=== PATIENT | female | born 1945 | race Caucasian/White ===

== ENCOUNTER → 2017-07-22 | Outpatient (CLI) | payer MEDICARE, BC ==
[2017-07-22 17:31] LABS: CH 30.4; CHCM 33.7; HCT 40.8 % (34.0-46.0); HDW 2.26; HGB 13.7 gm/dL (11.4-16.0); MCH 30.3 pg (25.0-35.0); MCHC 33.6 g/dL (31.0-37.0); MCV 90.4 fL (80.0-100.0); Mean Platelet Volume 7.6; RBC 4.51 m/uL (3.80-5.40); RDW 13.9 % (11.5-15.5); WBC 6.9 k/uL (3.8-10.6)
[2017-07-22 17:42] LABS: ALT 40 U/L (9-52); AST 33 U/L (14-36); Alkaline Phosphatase 93 U/L (38-126); Anion Gap 10 mmol/L; Blood Urea Nitrogen 16 mg/dL (7-17); Calcium 9.7 mg/dL (8.4-10.2); Carbon Dioxide 26 mmol/L (22-30); Chloride 104 mmol/L (98-107); Cholesterol 221 mg/dL (<200); Glucose 80 mg/dL (74-99); HDL Cholesterol 71 mg/dL (40-60); Non-African American GFR(MDRD) >60 (>60 ml/min/1.73 sqM); Potassium 4.4 mmol/L (3.5-5.1); Sodium 140 mmol/L (137-145); Total Bilirubin 1.1 mg/dL (0.2-1.3)
[2017-07-22 18:39] LABS: Hemoglobin A1C 5.8 % (4.2-6.1)
[2017-07-24 18:37] LABS: ANA w/Reflex to Titer NEGATIVE (NEGATIVE)
== END | disposition home or self-care (01) ==
LOC: LABWHC1 16:12
PROVIDERS: ATTEND Family Medicine
DX: M12.88 Other specific arthropathies, not elsewhere classified, other specified site (principal); I10 Essential (primary) hypertension; R73.01 Impaired fasting glucose; G40.209 Localization-related (focal) (partial) symptomatic epilepsy and epileptic syndromes with complex partial seizures, not intractable, without status epilepticus
CPT/HCPCS: 36415; 80053; 80061; 80177; 83036; 84443; 85027; 86038; 86376; 86800

== ENCOUNTER → 2017-07-25 | Outpatient (CLI) | payer MEDICARE, BC ==
--- NOTE | 2017-07-25 17:13 | US ---
EXAMINATION TYPE: US kidneys/renal and bladder DATE OF EXAM: 07/25/2017 COMPARISON: 08/09/2016 CLINICAL HISTORY: N28.9 Disorder of kidney and ureter. History of kidney cysts EXAM MEASUREMENTS: Right Kidney: 9.7 x 3.9 x 4.9 cm Left Kidney: 10.0 x 4.8 x 4.6 cm Right Kidney: 2.5 x 2.1 x 2.4cm exophytic complex cystic area inferior pole, 0.5cm echogenic focus mi d pole, dilated renal pelvis Left Kidney: 0.9cm exophytic cystic area inferior pole, dilated renal pelvis Bladder: wnl Bilateral Jets seen: yes CONCLUSION: I see no evidence of renal obstruction. 1 cm cortical cyst on the lower pole left kidney Complex 2.5 cm cyst on the lower pole right kidney. There is clearing of the ectasia of the left fadia l pelvis compared to old exam. Cortical cysts appear not significantly different.
== END | disposition home or self-care (01) ==
LOC: RADUSMAIN 16:06
PROVIDERS: ATTEND Family Medicine
DX: N28.1 Cyst of kidney, acquired (principal)
CPT/HCPCS: 76770

== ENCOUNTER → 2017-09-17 | Outpatient (CLI) | payer MEDICARE, BC ==
--- NOTE | 2017-09-18 07:42 | MM ---
Reason for exam: additional evaluation requested from abnormal screening. Last mammogram was performed less than 1 month ago. History: Patient is postmenopausal. Benign excisional biopsy of the right breast, 1993. Physical Findings: Nurse did not find any significant physical abnormalities on exam. MG 3D Work Up W/Cad LT CC with magnification, LM with magnification, and LM view(s) were taken of the left breast. Prior study comparison: September 06, 2017, bilateral MG 3d screening mammo w/cad. June 28, 2016, bilateral MG 3d screening mammo w/cad. There are scattered fibroglandular densities. New punctate group of calcifications located superficially in the lower inner quadrant. These punctate calcifications can be followed, reassess in 6 months. These results were verbally communicated with the patient and result sheet given to the patient on 09/17/17. ASSESSMENT: Probably benign, BI-RAD 3 RECOMMENDATION: Follow-up diagnostic mammogram of the left breast in 6 months.
== END | disposition home or self-care (01) ==
LOC: RADMAMWWP 10:25
PROVIDERS: ATTEND Family Medicine
DX: R92.8 Other abnormal and inconclusive findings on diagnostic imaging of breast (principal)
CPT/HCPCS: G0206; G0279

== ENCOUNTER → 2018-03-24 | Outpatient (CLI) | payer MEDICARE, BC ==
--- NOTE | 2018-03-24 11:58 | MM ---
Reason for exam: follow-up at short interval from prior study. Last mammogram was performed 6 months ago. History: Patient is postmenopausal. Benign excisional biopsy of the right breast, 1993. Physical Findings: Nurse did not find any significant physical abnormalities on exam. MG 3D Diag Mammo W/Cad LT CC and MLO view(s) were taken of the left breast. Prior study comparison: September 17, 2017, left breast MG 3d work up w/cad LT. September 06, 2017, bilateral MG 3d screening mammo w/cad. Finding: There are typically benign calcifications in the lower inner quadrant of the left breast. No significant changes in finding since September 17, 2017 and September 06, 2017. These results were verbally communicated with the patient and result sheet given to the patient on 03/27/18. ASSESSMENT: Probably benign, BI-RAD 3 RECOMMENDATION: Follow-up diagnostic mammogram of both breasts in 6 months. Back on schedule for August 2018.
== END | disposition home or self-care (01) ==
LOC: RADMAMWWP 11:19
PROVIDERS: ATTEND Family Medicine
DX: R92.8 Other abnormal and inconclusive findings on diagnostic imaging of breast (principal)
CPT/HCPCS: 77061; 77065

== ENCOUNTER → 2018-10-06 | Outpatient (CLI) | payer MEDICARE, BC ==
--- NOTE | 2018-10-06 14:45 | MM ---
Reason for exam: follow-up at short interval from prior study. Last mammogram was performed 6 months ago. History: Patient is postmenopausal. Benign excisional biopsy of the right breast, 1993. Physical Findings: Nurse did not find any significant physical abnormalities on exam. MG 3D Diag Mammo W/Cad RICHIE Bilateral CC and MLO view(s) were taken. Prior study comparison: March 24, 2018, left breast MG 3d diag mammo w/cad LT. September 17, 2017, left breast MG 3d work up w/cad LT. There are scattered fibroglandular densities. There is a 1.5mm group of calcifications in the lower inner quadrant unchaged from 2016. No suspicious abnormality. No significant new findings when compared with previous films. These results were verbally communicated with the patient and result sheet given to the patient on 10/06/18. ASSESSMENT: Benign, BI-RAD 2 RECOMMENDATION: Routine screening mammogram of both breasts in 1 year.
== END | disposition home or self-care (01) ==
LOC: RADMAMWWP 13:26
PROVIDERS: ATTEND Family Medicine
DX: R92.8 Other abnormal and inconclusive findings on diagnostic imaging of breast (principal)
CPT/HCPCS: 77066; G0279; 77062

== ENCOUNTER → 2019-03-09 | Outpatient (CLI) | payer MEDICARE, BC ==
--- NOTE | 2019-03-09 16:07 | XR ---
EXAMINATION TYPE: XR foot complete RT DATE OF EXAM: 03/09/2019 COMPARISON: NONE HISTORY: 74 year-old female right foot pain and redness at fourth metatarsal area after injury. TECHNIQUE: Review FINDINGS: Moderate degenerative joint space narrowing and marginal spurring at the first MTP joint. Additional degenerative change of the first metatarsal sesamoid joint. Os peroneum is noted. A type I versus typ e II assess for navicular is present. No acute fracture, subluxation, or dislocation is seen. IMPRESSION: Some degenerative changes at the great toe. No acute osseous abnormality seen.
== END | disposition home or self-care (01) ==
LOC: RADXRMAIN 15:32
PROVIDERS: ATTEND Family Medicine
DX: M19.071 Primary osteoarthritis, right ankle and foot (principal)

== ENCOUNTER 2019-08-12 17:53 | Inpatient (IN) | payer MEDICARE, BC ==
[2019-08-12 18:05] VITALS: RESP 18
--- NOTE | 2019-08-12 19:04 | ED ---
Chest Pain HPI - General Chief Complaint: Chest Pain Stated Complaint: Abnormal EKG Time Seen by Provider: 08/12/19 18:38 Source: patient Mode of arrival: ambulatory Limitations: no limitations - History of Present Illness Initial Comments: Patient is a 74-year-old female presenting to the emergency department with a chief complaint of chest pain. Patient was sent to the ED by her primary care. Patient reports she has developed a short burst of chest pain lasting approximately 10 seconds for the past 2 days. Patient reports the pain is located "deep into her chest". Patient reports that the pain is more of an ache. Patient denies any diaphoresis, blurry vision or lightheadedness during these episodes. Patient denies any radiation of the pain. Patient does have an extensive family history of cardiovascular disease. Patient does have hypertension and hypercholesterolemia. - Related Data Home Medications Medication Instructions Recorded Confirmed Candesartan Cilexetil [Atacand] 32 mg PO HS 08/12/19 08/12/19 Collagen Powder 1 dose PO DAILY 08/12/19 08/12/19 Magnesium/Calcium Powder 1 dose PO DAILY 08/12/19 08/12/19 Metoprolol Succinate [Toprol XL] 25 mg PO BID 08/12/19 08/12/19 Multivitamins, Thera [Multivitamin 1 tab PO DAILY 08/12/19 08/12/19 (formulary)] Potassium Otc(Unknown) 1.5 tab PO DAILY 08/12/19 08/12/19 Vit C/E/Zn/Coppr/Lutein/Zeaxan 1 cap PO BID 08/12/19 08/12/19 [Preservision Areds 2 Softgel] amLODIPine [Norvasc] 5 mg PO DAILY 08/12/19 08/12/19 levETIRAcetam [Keppra] 125 mg PO HS 08/12/19 08/12/19 Allergies Allergy/AdvReac Type Severity Reaction Status Date / Time amoxicillin [From Augmentin] Allergy Rash/Hives Verified 08/12/19 18:09 banana Allergy Unknown Verified 08/12/19 19:26 cheese Allergy Unknown Verified 08/12/19 19:26 clavulanic acid Allergy Rash/Hives Verified 08/12/19 18:09 [From Augmentin] corn Allergy Unknown Verified 08/12/19 19:26 egg Allergy Unknown Verified 08/12/19 19:26 methylprednisolone Allergy Rash/Hives Verified 08/12/19 18:09 [From Medrol] Milk Containing Products Allergy Unknown Verified 08/12/19 19:26 Mushroom Allergy Unknown Verified 08/12/19 19:26 naproxen [From Anaprox] Allergy Unknown Verified 08/12/19 18:09 oyster extract Allergy Unknown Verified 08/12/19 19:26 phenylbutazone Allergy Unknown Verified 08/12/19 18:09 [From Butazolidin] Sulfa (Sulfonamide Allergy Rash/Hives Verified 08/12/19 18:09 Antibiotics) Tetracyclines Allergy Rash/Hives Verified 08/12/19 18:09 wheat Allergy Unknown Verified 08/12/19 19:26 Yeast Allergy Unknown Verified 08/12/19 19:26 ciprofloxacin [From Cipro] AdvReac FOOT PAIN Verified 08/12/19 19:26 clarithromycin [From Biaxin] AdvReac Nausea & Verified 08/12/19 19:26 Vomiting & Diarrhea dexamethasone AdvReac [id number]: Verified 08/12/19 19:26 PAIN IN EYE metaxalone [From Skelaxin] AdvReac SHAKY Verified 08/12/19 19:26 neomycin AdvReac [id number]: Verified 08/12/19 19:26 PAIN IN EYE polymyxin B AdvReac [id number]: Verified 08/12/19 19:26 PAIN IN EYE GREEN MAE Allergy Unknown Uncoded 08/12/19 19:26 RYE Allergy Unknown Uncoded 08/12/19 19:26 Review of Systems ROS Statement: Those systems with pertinent positive or pertinent negative responses have been documented in the HPI. ROS Other: All systems not noted in ROS Statement are negative. EKG Findings - EKG Comments: EKG Findings:: Normal sinus rhythm, no ST elevation. Left axis deviation. Ventricular rate 80, OH interval 150, QRS duration 78, QT/QTC 356/410 Past Medical History Past Medical History: Hypertension History of Any Multi-Drug Resistant Organisms: None Reported Past Surgical History: Appendectomy, Cholecystectomy, Tubal Ligation Additional Past Surgical History / Comment(s): breast sx Past Psychological History: No Psychological Hx Reported Smoking Status: Never smoker Past Alcohol Use History: None Reported Past Drug Use History: None Reported General Exam Limitations: no limitations General appearance: alert, in no apparent distress Head exam: Present: atraumatic, normocephalic, normal inspection Eye exam: Present: normal appearance, PERRL, EOMI Pupils: Present: normal accommodation ENT exam: Present: normal exam, mucous membranes moist, normal external ear exam Neck exam: Present: normal inspection, full ROM Respiratory exam: Present: normal lung sounds bilaterally Cardiovascular Exam: Present: regular rate, normal rhythm, systolic murmur Extremities exam: Present: normal inspection, full ROM Back exam: Present: normal inspection, full ROM Neurological exam: Present: alert, oriented X3 Psychiatric exam: Present: normal affect, normal mood Skin exam: Present: warm, intact, normal color Course Vital Signs 08/12/19 17:56 Temperature 98.5 F Pulse Rate 105 H Respiratory 18 Rate Blood Pressure 177/97 O2 Sat by Pulse 98 Oximetry Chest Pain MDM - Differential Diagnosis ACS - MDM Patient is a 74-year-old female presenting to emergency Department with a chief complaint of chest pain. Patient was sent to the ED by her primary care. Patient has developed a short burst of substernal chest pain for the past 2 days. Patient is not any chest pain at this time. Patient does not have any diaphoresis, lightheadedness or any blurry vision. Chest pain did not radiate anywhere. Patient had no shortness of breath. Patient denies chest pain on exertion. Initial chest x-ray is unremarkable. EKG shows left axis deviation. Initial troponins are negative. Physical examination is unremarkable. Patient has a heart score of 6 and will be admitted for observation and serial troponins. Case discussed with . Admitting physician is Cardiology consulted Disposition Clinical Impression: Chest pain Disposition: ADMITTED IP TO THIS HOSP Condition: Stable Instructions (If sedation given, give patient instructions): Chest Pain (ED) Additional Instructions: Patient will be admitted Is patient prescribed a controlled substance at d/c from ED?: No Referrals: Karina Le DO [Primary Care Provider] - 1-2 days Time of Disposition: 20:09
--- NOTE | 2019-08-12 19:34 | XR ---
EXAMINATION TYPE: XR chest 2V DATE OF EXAM: 08/12/2019 COMPARISON: 03/24/2013 HISTORY: Chest pain TECHNIQUE: Frontal and lateral views of the chest are obtained. FINDINGS: Heart is normal. Lungs are clear of infiltrate. There are no hilar masses. There is no ple ural effusion. Bony thorax is intact. IMPRESSION: No active cardiopulmonary disease. Normal heart. No change.
[2019-08-12 19:37] LABS: Basophils # (A) 0.1 k/uL (0-0.2); Basophils % (A) 1 %; Eosinophils # (A) 0.1 k/uL (0-0.7); Eosinophils % (A) 2 %; HGB 13.4 gm/dL (11.4-16.0); Lymphocytes # (A) 1.7 k/uL (1.0-4.8); Lymphocytes % (A) 21 %; MCV 90.8 fL (80.0-100.0); Mean Platelet Volume 6.8; Monocytes # (A) 0.4 k/uL (0-1.0); Monocytes % (A) 5 %; Neutrophils # (A) 5.9 k/uL (1.3-7.7); Neutrophils % (A) 70 %; Platelet Count 282 k/uL (150-450); RBC 4.62 m/uL (3.80-5.40); RDW 13.6 % (11.5-15.5); WBC 8.4 k/uL (3.8-10.6)
[2019-08-12 19:39] LABS: ALT 23 U/L (9-52); AST 32 U/L (14-36); African American GFR (CKD) >90 (>60 ml/min/1.73 sqM); Albumin 4.5 g/dL (3.5-5.0); Alkaline Phosphatase 115 U/L (38-126); Anion Gap 10 mmol/L; Blood Urea Nitrogen 18 mg/dL (7-17); Calcium 9.9 mg/dL (8.4-10.2); Carbon Dioxide 25 mmol/L (22-30); Chloride 105 mmol/L (98-107); Glucose 103 mg/dL (74-99); Magnesium 2.2 mg/dL (1.6-2.3); Sodium 140 mmol/L (137-145); Total Bilirubin 0.6 mg/dL (0.2-1.3); Total Protein 7.6 g/dL (6.3-8.2)
[2019-08-12 19:52] LABS: INR 0.9 (<1.2); Partial Thromboplastin Time 23.2 sec (22.0-30.0); Prothrombin Time 9.8 sec (9.0-12.0)
[2019-08-12] MEDS ORDERED: MORPHINE SULFATE 4 MG/ML SYRINGE IV PRN (20:10)
[2019-08-12] MEDS ORDERED: NALOXONE 0.4 MG/ML 1 ML VIAL IV PRN (20:10)
[2019-08-12] MEDS ORDERED: LOSARTAN 50 MG TAB PO SCH (21:30)
[2019-08-12] MEDS ORDERED: levETIRAcetam 250 MG TAB PO SCH (21:30)
[2019-08-12] MEDS: METOPROLOL SUCCINATE (ER) 25 MG TAB.ER.24H PO SCH (22:13)
[2019-08-13] MEDS ORDERED: amLODIPine 5 MG TAB PO SCH (09:00)
--- NOTE | 2019-08-13 11:05 | P.CRDCN ---
History of Present Illness History of present illness: This is a pleasant 74-year-old female past medical history significant for hypertension. She denies prior history of coronary artery disease, dyslipidemia or diabetes mellitus. She does not follow with a button cutter. We have been asked to see her in consultation secondary to chest discomfort. She states over the previous 2-3 days she has noticed a jolt like sharp pain in the left precordial region typically at rest when she lays down. There is no radiation or associated symptoms. She states she has had palpitations in the past and this was different. There was no palpitations this time only the pain. She recently traveled by car to the [facility] and after that trip her right leg was swollen. Currently there is no swelling in either leg. She denies chest discomfort currently. She does state she is under significant amount of stress as her is having a heart catheterization next week. EKG reveals sinus mechanism heart rate of 80, left axis deviation and nonspecific ST changes. Chest x-ray is negative for an acute cardiopulmonary process. Laboratory data reviewed, CBC unremarkable, d-dimer 0.34, sodium 140, potassium 4.0, creatinine 0.66, magnesium 2.2, cardiac enzymes negative 3. Current daily cardiac medications include Toprol 25 mg twice a day, amlodipine 5 mg daily. At the time of my exam: CONSTITUTIONAL: Denies fever. Denies chills. EYES: Denies blurred vision. Denies vision changes. Denies eye pain. EARS, NOSE, MOUTH & THROAT: Denies headache. Denies sore throat. Denies ear pain. CARDIOVASCULAR: Denies chest pain. Denies shortness of breath. Denies orthopnea. Denies PND. Denies palpitations. RESPIRATORY: Denies cough. GASTROINTESTINAL: Denies abdominal pain. Denies diarrhea. Denies constipation. Denies nausea. Denies vomiting. MUSCULOSKELETAL: Denies myalgias. INTEGUMENTARY: Denies pruitis. Denies rash. NEUROLOGIC: Denies numbness. Denies tingling. Denies weakness. PSYCHIATRIC: Denies anxiety. Denies depression. ENDOCRINE: Denies fatigue. Denies weight change. Denies polydipsia. Denies polyurina. GENITOURINARY: Denies burning, hematuria or urgency with micturation. HEMATOLOGIC: Denies history of anemia. Denies bleeding. Blood pressure 145/78 heart rate 61 afebrile maintaining oxygen saturation on room air GENERAL: This is a 74-year-old female in no apparent distress at the time of my examination. HEENT: Head is atraumatic, normocephalic. Pupils are equal, round. Sclerae anicteric. Conjunctivae are clear. Mucous membranes of the mouth are moist. Neck is supple. There is no jugular venous distention. No carotid bruit is heard. LUNGS: Clear to auscultation no wheezes, rales or rhonchi. No chest wall tenderness is noted on palpation or with deep breathing. HEART: Regular rate and rhythm without murmurs, rubs or gallops. S1 and S2 heard. ABDOMEN: Soft, nontender. Bowel sounds are heard. No organomegaly noted. EXTREMITIES: No evidence of peripheral edema and no calf tenderness noted. VASCULAR: Radial and dorsalis pedis pulses palpated, no evidence of clubbing. NEUROLOGIC: Patient is awake, alert and oriented x3. ASSESSMENT Chest pain, atypical. An acute coronary event has been ruled out. Hypertension PLAN An acute coronary event has been ruled out. Obtain 2D echocardiogram and doppler study to assess cardiac structure and function. Perform stress echocardiogram to assess for stress induced ischemia. If stress test is normal, she may be discharged home from a cardiac perspective. Thank you kindly for this consultation. Nurse Practitioner note has been reviewed, I agree with a documented findings and plan of care. Patient was seen and examined. Past Medical History Past Medical History: Hypertension History of Any Multi-Drug Resistant Organisms: None Reported Past Surgical History: Adenoidectomy, Appendectomy, Cholecystectomy, Tonsillectomy, Tubal Ligation Additional Past Surgical History / Comment(s): breast sx Past Anesthesia/Blood Transfusion Reactions: No Reported Reaction Past Psychological History: No Psychological Hx Reported Smoking Status: Never smoker Past Alcohol Use History: None Reported Past Drug Use History: None Reported - Past Family History Mother Family Medical History: Coronary Artery Disease (CAD), Hypertension Father Family Medical History: Coronary Artery Disease (CAD), Hypertension Medications and Allergies Home Medications Medication Instructions Recorded Confirmed Type Candesartan Cilexetil [Atacand] 32 mg PO HS 08/12/19 08/12/19 History Collagen Powder 1 dose PO DAILY 08/12/19 08/12/19 History Magnesium/Calcium Powder 1 dose PO DAILY 08/12/19 08/12/19 History Metoprolol Succinate [Toprol XL] 25 mg PO BID 08/12/19 08/12/19 History Multivitamins, Thera [Multivitamin 1 tab PO DAILY 08/12/19 08/12/19 History (formulary)] Potassium Otc(Unknown) 1.5 tab PO DAILY 08/12/19 08/12/19 History Vit C/E/Zn/Coppr/Lutein/Zeaxan 1 cap PO BID 08/12/19 08/12/19 History [Preservision Areds 2 Softgel] amLODIPine [Norvasc] 5 mg PO DAILY 08/12/19 08/12/19 History levETIRAcetam [Keppra] 125 mg PO HS 08/12/19 08/12/19 History Allergies Allergy/AdvReac Type Severity Reaction Status Date / Time amoxicillin [From Augmentin] Allergy Rash/Hives Verified 08/12/19 18:09 banana Allergy Unknown Verified 08/12/19 19:26 cheese Allergy Unknown Verified 08/12/19 19:26 clavulanic acid Allergy Rash/Hives Verified 08/12/19 18:09 [From Augmentin] corn Allergy Unknown Verified 08/12/19 19:26 egg Allergy Unknown Verified 08/12/19 19:26 methylprednisolone Allergy Rash/Hives Verified 08/12/19 18:09 [From Medrol] Milk Containing Products Allergy Unknown Verified 08/12/19 19:26 Mushroom Allergy Unknown Verified 08/12/19 19:26 naproxen [From Anaprox] Allergy Unknown Verified 08/12/19 18:09 oyster extract Allergy Unknown Verified 08/12/19 19:26 phenylbutazone Allergy Unknown Verified 08/12/19 18:09 [From Butazolidin] Sulfa (Sulfonamide Allergy Rash/Hives Verified 08/12/19 18:09 Antibiotics) Tetracyclines Allergy Rash/Hives Verified 08/12/19 18:09 wheat Allergy Unknown Verified 08/12/19 19:26 Yeast Allergy Unknown Verified 08/12/19 19:26 ciprofloxacin [From Cipro] AdvReac FOOT PAIN Verified 08/12/19 19:26 clarithromycin [From Biaxin] AdvReac Nausea & Verified 08/12/19 19:26 Vomiting & Diarrhea dexamethasone AdvReac [id number]: Verified 08/12/19 19:26 PAIN IN EYE metaxalone [From Skelaxin] AdvReac SHAKY Verified 08/12/19 19:26 neomycin AdvReac [id number]: Verified 08/12/19 19:26 PAIN IN EYE polymyxin B AdvReac [id number]: Verified 08/12/19 19:26 PAIN IN EYE GREEN MAE Allergy Unknown Uncoded 08/12/19 19:26 RYE Allergy Unknown Uncoded 08/12/19 19:26 Physical Exam Vitals: Vital Signs Temp Pulse Pulse Resp BP BP Pulse Ox 08/13/19 07:53 98.1 F 61 18 145/78 98 08/13/19 04:00 97.6 F 52 L 18 145/75 98 08/13/19 03:59 72 18 08/13/19 00:00 72 18 08/12/19 23:46 97.5 F L 72 18 145/84 99 08/12/19 22:00 62 18 08/12/19 21:49 98.1 F 62 18 182/95 98 08/12/19 21:00 71 18 154/95 98 08/12/19 17:56 98.5 F 105 H 18 177/97 98 Intake and Output 08/12/19 08/13/19 08/13/19 22:59 06:59 14:59 Other: # Voids 1 Weight 56.245 kg Results 08/12/19 19:13 08/12/19 19:13 Cardiac Enzymes 08/12/19 08/12/19 08/13/19 Range/Units 19:13 19:13 01:22 AST 32 (14-36) U/L Troponin I <0.012 <0.012 (0.000-0.034) ng/mL 08/13/19 Range/Units 05:42 AST (14-36) U/L Troponin I <0.012 (0.000-0.034) ng/mL Coagulation 08/12/19 Range/Units 19:13 PT 9.8 (9.0-12.0) sec APTT 23.2 (22.0-30.0) sec CBC 08/12/19 Range/Units 19:13 WBC 8.4 (3.8-10.6) k/uL RBC 4.62 (3.80-5.40) m/uL Hgb 13.4 (11.4-16.0) gm/dL Hct 42.0 (34.0-46.0) % Plt Count 282 (150-450) k/uL Comprehensive Metabolic Panel 08/12/19 Range/Units 19:13 Sodium 140 (137-145) mmol/L Potassium 4.0 (3.5-5.1) mmol/L Chloride 105 (98-107) mmol/L Carbon Dioxide 25 (22-30) mmol/L BUN 18 H (7-17) mg/dL Creatinine 0.66 (0.52-1.04) mg/dL Glucose 103 H (74-99) mg/dL Calcium 9.9 (8.4-10.2) mg/dL AST 32 (14-36) U/L ALT 23 (9-52) U/L Alkaline Phosphatase 115 (38-126) U/L Total Protein 7.6 (6.3-8.2) g/dL Albumin 4.5 (3.5-5.0) g/dL Current Medications Generic Name Dose Route Start Last Admin Trade Name Freq PRN Reason Stop Dose Admin Amlodipine Besylate 5 mg 08/13/19 09:00 Norvasc PO DAILY JAYDEN Levetiracetam 125 mg 08/12/19 21:30 08/12/19 22:13 Keppra PO 125 mg HS JAYDEN Administration Losartan Potassium 150 mg 08/12/19 21:30 08/12/19 22:13 Cozaar PO 150 mg HS JAYDEN Administration Metoprolol Succinate 25 mg 08/12/19 21:30 08/12/19 22:13 Toprol Xl PO 25 mg BID JAYDEN Administration Morphine Sulfate 4 mg 08/12/19 20:10 Morphine Sulfate (Inj) IV Q4HR PRN Severe Pain Naloxone HCl 0.2 mg 08/12/19 20:10 Narcan IV Q2M PRN Opioid Reversal Intake and Output 08/12/19 08/13/19 08/13/19 22:59 06:59 14:59 Other: # Voids 1 Weight 56.245 kg 08/12/19 19:13 08/12/19 19:13
--- NOTE | 2019-08-13 12:00 | ECHOF ---
Referral Reason:cp MEASUREMENTS -------- HEIGHT: 177.8 cm WEIGHT: 56.2 kg BP: 145/78 RVIDd: 2.8 cm (< 3.3) IVSd: 1.0 cm (0.6 - 1.1) LVIDd: 4.1 cm (3.9 - 5.3) LVPWd: 0.8 cm (0.6 - 1.1) IVSs: 1.4 cm LVIDs: 2.3 cm LVPWs: 1.3 cm LA Diam: 2.9 cm (2.7 - 3.8) LAESV Index (A-L): 21.53 ml/m Ao Diam: 2.6 cm (2.0 - 3.7) AV Cusp: 1.6 cm (1.5 - 2.6) MV EXCURSION: 13.601 mm (> 18.000) MV EF SLOPE: 82 mm/s (70 - 150) EPSS: 0.8 cm MV E Umesh: 1.00 m/s MV DecT: 158 ms MV A Umesh: 0.92 m/s MV E/A Ratio: 1.09 AR PHT: 1003 ms RAP: 5.00 mmHg RVSP: 29.38 mmHg TAPSE: 19.13 mm FINDINGS -------- Sinus rhythm. This was a technically good study. The left ventricular size is normal. Left ventricular wall thickness is normal. Overall left vent ricular systolic function is normal with, an EF between 60 - 65 %. The right ventricle is normal in size. Normal LA size by volume 22+/-6 ml/m2. The right atrium is normal in size. Aneurysmal Interatrial septum. There is mild aortic valve sclerosis. Trace to mild aortic regurgitation. The mitral valve leaflets are mildly thickened. Mild mitral annular calcification present. There is trace to mild mitral regurgitation. Mild tricuspid regurgitation present. Right ventricular systolic pressure is normal at < 35 mmHg. Trace/mild (physiologic) pulmonic regurgitation. The aortic root size is normal. Normal inferior vena cava with normal inspiratory collapse consistent with estimated right atrial pre ssure of 5 mmHg. There is no pericardial effusion. CONCLUSIONS -------- 1. Sinus rhythm. 2. This was a technically good study. 3. The left ventricular size is normal. 4. Left ventricular wall thickness is normal. 5. Overall left ventricular systolic function is normal with, an EF between 60 - 65 %. 6. The right ventricle is normal in size. 7. Normal LA size by volume 22+/-6 ml/m2. 8. The right atrium is normal in size. 9. Aneurysmal Interatrial septum. 10. There is mild aortic valve sclerosis. 11. Trace to mild aortic regurgitation. 12. The mitral valve leaflets are mildly thickened. 13. Mild mitral annular calcification present. 14. There is trace to mild mitral regurgitation. 15. Mild tricuspid regurgitation present. 16. Right ventricular systolic pressure is normal at < 35 mmHg. 17. Trace/mild (physiologic) pulmonic regurgitation. 18. The aortic root size is normal. 19. Normal inferior vena cava with normal inspiratory collapse consistent with estimated right atrial pressure of 5 mmHg. 20. There is no pericardial effusion. CSW: Amanda Jackson RDCS
[2019-08-13] MEDS: METOPROLOL SUCCINATE (ER) 25 MG TAB.ER.24H PO SCH (12:32)
--- NOTE | 2019-08-13 12:41 | ECHOS ---
STRESS ECHOCARDIOGRAM INDICATIONS: Chest pain. MEDICATIONS: BASELINE HEART RATE: 66 BASELINE BLOOD PRESSURE: 180/90 MAXIMUM HEART RATE: 147 MAXIMUM BLOOD PRESSURE: 184/88 85% MPHR: 124 100% MPHR: 146 METS: 8.5 MAXIMUM STAGE REACHED: III TOTAL EXERCISE TIME: 7 minutes CLINICAL INFORMATION: Patient was exercised for a total period of 7 minutes. The peak heart rate of 147 was achieved. Maximum blood pressure of 184/88 mmHg was noted. Resting EKG shows normal sinus rhythm with normal UT interval and QRS duration and normal ST-T waves. No ST- segment depression suggestive of ischemia was noted. In the immediate postexercise period, a short run of atrial tachycardia was noted. Occasional PVCs were noted during exercise. The baseline echocardiographic images reveals normal left ventricular chamber size with normal left ventricular systolic function. In the immediate postexercise period, normal increase in the wall thickness and contractility is noted. FINAL IMPRESSION: 1. This stress echocardiographic study is negative for stress-induced ischemia. 2. EKG portion of the stress test is not suggestive of ischemia. 3. Occasional PVCs were noted. One episode of short run of supraventricular tachycardia was noted in the immediate post exercise period. MMODL / IJN: [id number] /
[2019-08-13 15:41] VITALS: BP 127/78; PULSE 75; TEMP 98.1
--- NOTE | 2019-08-15 14:03 | P.HPIM ---
History of Present Illness H&P Date: 08/13/19 Marian Vance is a 74 yo F with PMH hypertension who presents to the ED with episodic chest pain over the past few weeks. She states that over the past few days she has experienced intermittent sharp jolts of substernal chest pain, which have occurred typically at rest. She states that she is under a lot of stress currently as her is going for a catheterization in a few days. She denies any previous personal history of CAD, DM, or tobacco use. She has never seen a field service rep and states she had a stress test with her PCP about 5 years ago which was normal. She was seen in outpatient clinic for these symptoms and EKG revealed LVH and L axis deviation. Pt was advised to present to the ED where serial troponins were negative and remainder of blood tests normal. Review of Systems All systems: negative Constitutional: Denies chills, Denies fever Eyes: denies blurred vision, denies pain Ears, nose, mouth and throat: Denies headache, Denies sore throat Cardiovascular: Reports chest pain, Denies dyspnea on exertion, Denies edema, Denies lightheadedness, Denies orthopnea, Denies shortness of breath Respiratory: Denies cough Gastrointestinal: Denies abdominal pain, Denies diarrhea, Denies nausea, Denies vomiting Genitourinary: Denies dysuria, Denies hematuria Musculoskeletal: Denies myalgias Integumentary: Denies pruritus, Denies rash Neurological: Denies numbness, Denies weakness Psychiatric: Denies anxiety, Denies depression Endocrine: Denies fatigue, Denies weight change Past Medical History Past Medical History: Hypertension History of Any Multi-Drug Resistant Organisms: None Reported Past Surgical History: Adenoidectomy, Appendectomy, Cholecystectomy, Tonsillectomy, Tubal Ligation Additional Past Surgical History / Comment(s): breast sx Past Anesthesia/Blood Transfusion Reactions: No Reported Reaction Past Psychological History: No Psychological Hx Reported Smoking Status: Never smoker Past Alcohol Use History: None Reported Past Drug Use History: None Reported - Past Family History Mother Family Medical History: Coronary Artery Disease (CAD), Hypertension Father Family Medical History: Coronary Artery Disease (CAD), Hypertension Medications and Allergies Home Medications Medication Instructions Recorded Confirmed Type Candesartan Cilexetil [Atacand] 32 mg PO HS 08/12/19 08/12/19 History Collagen Powder 1 dose PO DAILY 08/12/19 08/12/19 History Magnesium/Calcium Powder 1 dose PO DAILY 08/12/19 08/12/19 History Metoprolol Succinate [Toprol XL] 25 mg PO BID 08/12/19 08/12/19 History Multivitamins, Thera [Multivitamin 1 tab PO DAILY 08/12/19 08/12/19 History (formulary)] Potassium Otc(Unknown) 1.5 tab PO DAILY 08/12/19 08/12/19 History Vit C/E/Zn/Coppr/Lutein/Zeaxan 1 cap PO BID 08/12/19 08/12/19 History [Preservision Areds 2 Softgel] amLODIPine [Norvasc] 5 mg PO DAILY 08/12/19 08/12/19 History levETIRAcetam [Keppra] 125 mg PO HS 08/12/19 08/12/19 History Allergies Allergy/AdvReac Type Severity Reaction Status Date / Time amoxicillin [From Augmentin] Allergy Rash/Hives Verified 08/12/19 18:09 banana Allergy Unknown Verified 08/12/19 19:26 cheese Allergy Unknown Verified 08/12/19 19:26 clavulanic acid Allergy Rash/Hives Verified 08/12/19 18:09 [From Augmentin] corn Allergy Unknown Verified 08/12/19 19:26 egg Allergy Unknown Verified 08/12/19 19:26 methylprednisolone Allergy Rash/Hives Verified 08/12/19 18:09 [From Medrol] Milk Containing Products Allergy Unknown Verified 08/12/19 19:26 Mushroom Allergy Unknown Verified 08/12/19 19:26 naproxen [From Anaprox] Allergy Unknown Verified 08/12/19 18:09 oyster extract Allergy Unknown Verified 08/12/19 19:26 phenylbutazone Allergy Unknown Verified 08/12/19 18:09 [From Butazolidin] Sulfa (Sulfonamide Allergy Rash/Hives Verified 08/12/19 18:09 Antibiotics) Tetracyclines Allergy Rash/Hives Verified 08/12/19 18:09 wheat Allergy Unknown Verified 08/12/19 19:26 Yeast Allergy Unknown Verified 08/12/19 19:26 ciprofloxacin [From Cipro] AdvReac FOOT PAIN Verified 08/12/19 19:26 clarithromycin [From Biaxin] AdvReac Nausea & Verified 08/12/19 19:26 Vomiting & Diarrhea dexamethasone AdvReac [id number]-COU: Verified 08/12/19 19:26 PAIN IN EYE metaxalone [From Skelaxin] AdvReac SHAKY Verified 08/12/19 19:26 neomycin AdvReac [id number]: Verified 08/12/19 19:26 PAIN IN EYE polymyxin B AdvReac [id number]: Verified 08/12/19 19:26 PAIN IN EYE GREEN MAE Allergy Unknown Uncoded 08/12/19 19:26 RYE Allergy Unknown Uncoded 08/12/19 19:26 Physical Exam Vitals: Vital Signs Temp Pulse Resp BP Pulse Ox 08/13/19 15:39 98.1 F 75 18 127/78 98 08/13/19 12:00 99.2 F 79 154/89 97 08/13/19 07:53 98.1 F 61 18 145/78 98 08/13/19 04:00 97.6 F 52 L 18 145/75 98 08/13/19 03:59 72 18 08/13/19 00:00 72 18 08/12/19 23:46 97.5 F L 72 18 145/84 99 Intake and Output 08/13/19 08/13/19 08/14/19 14:59 22:59 06:59 Other: # Voids 2 General: well nourished, well developed, NAD. Vitals reviewed Eyes: PERRL, EOMI, conjunctiva normal HENT: normocephalic, mucus membranes moist Neck: supple, no JVD Lungs: normal respiratory effort, no wheezes or rales CV: Regular rate and rhythm, no murmur. Peripheral pulses 2+ Abdomen: soft, nondistended, no organomegaly Lymph: no cervical or axillary LAD Skin: warm and dry. Neuro: A&Ox3, normal mood and affect Results CBC & Chem 7: 08/12/19 19:13 08/12/19 19:13 Thrombosis Risk Factor Assmnt - Choose All That Apply Any of the Below Risk Factors Present?: Yes Each Factor Represents 1 point: Acute [place], Obesity (BMI >25) Other Risk Factors: Yes Each Risk Factor Represents 2 Points: Age 61-74 years Other congenital or acquired thrombophilia - If yes, enter type in comment: No Thrombosis Risk Factor Assessment Total Risk Factor Score: 4 Thrombosis Risk Factor Assessment Level: Moderate Risk Assessment and Plan (1) Chest pain Status: Acute Code(s): R07.9 - CHEST PAIN, UNSPECIFIED SNOMED Code(s): 70321401 (2) Hypertension Status: Acute Code(s): I10 - ESSENTIAL (PRIMARY) HYPERTENSION SNOMED Code(s): 28360382 Plan: 1. Chest pain. ACS ruled out. Cardiology consult. Plan for stress test and echo 2. HTN. Continue norvasc, toprol and ARB
--- NOTE | 2019-08-15 14:06 | P.DS ---
Providers Date of admission: 08/13/19 16:35 Expected date of discharge: 08/13/19 Attending physician: Vern Le MD Consults: 08/12/19 20:10 Consult Physician Stat Consulting Provider: Norman Pagan Consult Reason/Comments: chest pain Do you want consulting provider notified?: Yes Primary care physician: Karina Le - Discharge Diagnosis(es) (1) Chest pain Status: Acute (2) Hypertension Status: Acute Hospital Course: Marian Vance is a 74 yo F with PMH hypertension who presents to the ED with episodic chest pain over the past few weeks. She states that over the past few days she has experienced intermittent sharp jolts of substernal chest pain, which have occurred typically at rest. She states that she is under a lot of stress currently as her is going for a catheterization in a few days. She denies any previous personal history of CAD, DM, or tobacco use. She has never seen a small offset printer and states she had a stress test with her PCP about 5 years ago which was normal. She was seen in outpatient clinic for these symptoms and EKG revealed LVH and L axis deviation. Pt was advised to present to the ED where serial troponins were negative and remainder of blood tests normal. Pt was admitted to observation and cardiology consulted. She underwent stress echo which was negative for exercise induced ischemia. Echocardiogram showed normal LVEF and no valvular pathology. She is discharged in stable condition and recommended to follow up with her PCP. Discharge exam: General: well nourished, well developed, NAD. Vitals reviewed HENT: normocephalic, mucus membranes moist Lungs: normal respiratory effort, no wheezes or rales CV: Regular rate and rhythm, no murmur. Peripheral pulses 2+ Abdomen: soft, nondistended, no organomegaly Skin: warm and dry. Neuro: A&Ox3, normal mood and affect Patient Condition at Discharge: Stable Plan - Discharge Summary Discharge Rx Participant: No New Discharge Prescriptions: Continue Multivitamins, Thera [Multivitamin (formulary)] 1 tab PO DAILY Vit C/E/Zn/Coppr/Lutein/Zeaxan [Preservision Areds 2 Softgel] 1 cap PO BID Potassium Otc(Unknown) 1.5 tab PO DAILY Collagen Powder 1 dose PO DAILY levETIRAcetam [Keppra] 125 mg PO HS amLODIPine [Norvasc] 5 mg PO DAILY Metoprolol Succinate [Toprol XL] 25 mg PO BID Candesartan Cilexetil [Atacand] 32 mg PO HS Magnesium/Calcium Powder 1 dose PO DAILY Discharge Medication List Candesartan Cilexetil [Atacand] 32 mg PO HS 08/12/19 [History] Collagen Powder 1 dose PO DAILY 08/12/19 [History] Magnesium/Calcium Powder 1 dose PO DAILY 08/12/19 [History] Metoprolol Succinate [Toprol XL] 25 mg PO BID 08/12/19 [History] Multivitamins, Thera [Multivitamin (formulary)] 1 tab PO DAILY 08/12/19 [History] Potassium Otc(Unknown) 1.5 tab PO DAILY 08/12/19 [History] Vit C/E/Zn/Coppr/Lutein/Zeaxan [Preservision Areds 2 Softgel] 1 cap PO BID 08/12/19 [History] amLODIPine [Norvasc] 5 mg PO DAILY 08/12/19 [History] levETIRAcetam [Keppra] 125 mg PO HS 08/12/19 [History] Follow up Appointment(s)/Referral(s): Karina Le DO [Primary Care Provider] - 1-2 days Gillian Cowart MD [STAFF PHYSICIAN] - 08/25/19 4:15 pm (At the [place] office with Dr. Cowart) Patient Instructions/Handouts: Chest Pain (ED) Discharge Disposition: HOME SELF-CARE
== END 2019-08-13 19:00 | disposition home or self-care (01) | DRG 313 ==
LOC: EC 17:53 → 1SOBS 20:31 → OBSVTOIN 08-13 16:35
PROVIDERS: ADMIT Family Medicine; ATTEND Family Medicine
DX: R07.89 Other chest pain (principal); E78.00 Pure hypercholesterolemia, unspecified; I10 Essential (primary) hypertension; Z88.1 Allergy status to other antibiotic agents; Z91.012 Allergy to eggs; Z91.011 Allergy to milk products; Z88.0 Allergy status to penicillin; Z88.2 Allergy status to sulfonamides; Z88.7 Allergy status to serum and vaccine; Z91.018 Allergy to other foods; Z90.49 Acquired absence of other specified parts of digestive tract; Z98.51 Tubal ligation status; Z82.49 Family history of ischemic heart disease and other diseases of the circulatory system; Z79.899 Other long term (current) drug therapy; Z90.89 Acquired absence of other organs; Z88.6 Allergy status to analgesic agent
CPT/HCPCS: 36415; 71046; 80053; 83735; 84443; 84484; 85025; 85379; 85610; 85730; 93005; 93306; 93351; 99285

== ENCOUNTER → 2020-09-02 | Outpatient (CLI) | payer MEDICARE, BC ==
--- NOTE | 2020-09-06 08:14 | MM ---
Reason for exam: screening (asymptomatic). Last mammogram was performed 1 year and 11 months ago. History: Patient is postmenopausal. Benign excisional biopsy of the right breast, 1993. Physical Findings: A clinical breast exam by your physician is recommended on an annual basis and results should be correlated with mammographic findings. MG 3D Screening Mammo W/Cad Bilateral CC and MLO view(s) were taken. Prior study comparison: October 06, 2018, bilateral MG 3d diag mammo w/cad RICHIE. March 24, 2018, left breast MG 3d diag mammo w/cad LT. There are scattered fibroglandular densities. No significant changes when compared with prior studies. ASSESSMENT: Negative, BI-RAD 1 RECOMMENDATION: Routine screening mammogram of both breasts in 1 year.
== END | disposition home or self-care (01) ==
LOC: RADMAMWWP 11:10
PROVIDERS: ATTEND Family Medicine
DX: Z12.31 Encounter for screening mammogram for malignant neoplasm of breast (principal)
CPT/HCPCS: 77063; 77067

== ENCOUNTER → 2021-05-30 | Outpatient (CLI) | payer MEDICARE ==
[2021-05-30 23:37] LABS: HGB 12.9 g/dL (12.0-15.0); MCH 30.1 pg (27.0-32.0); MCHC 33.1 g/dL (32.0-37.0); MCV 91.1 fL (80.0-97.0); Mean Platelet Volume 11.7 fL (9.5-12.2); Platelet Count 265 X 10*3/uL (140-440); RBC 4.28 X 10*6/uL (4.10-5.20); RDW 13.7 % (11.5-14.5)
[2021-05-31 04:45] LABS: African American GFR (CKD) 97.5 (60.0-200.0); Albumin 4.4 g/dL (3.80-4.90); Albumin/Globulin Ratio 1.76 (1.60-3.17); Anion Gap 10.4 mmol/L (4.00-12.00); BUN/Creat Ratio 28.57 Ratio (12.00-20.00); Calcium 9.5 mg/dL (8.7-10.3); Carbon Dioxide 23.6 mmol/L (21.6-31.8); Chol/HDL Ratio 2.94; Globulin 2.5 g/dL (1.6-3.3); Non-African American GFR(CKD) 84.2 (60.0-200.0); Phosphorus 4.3 mg/dL (2.4-5.1); Potassium 4.3 mmol/L (3.5-5.5); Total Bilirubin 0.9 mg/dL (0.3-1.2); Total Protein 6.9 g/dL (6.2-8.2)
[2021-05-31 04:53] LABS: T4, Free (Free Thyroxine) 0.9 ng/dL (0.80-1.80)
== END | disposition home or self-care (01) ==
LOC: LABWHC1 14:08
PROVIDERS: ATTEND Family Medicine
DX: Z01.812 Encounter for preprocedural laboratory examination (principal); T14.8XXA Other injury of unspecified body region, initial encounter; W57.XXXA Bitten or stung by nonvenomous insect and other nonvenomous arthropods, initial encounter; E55.9 Vitamin D deficiency, unspecified; I10 Essential (primary) hypertension; G62.9 Polyneuropathy, unspecified; R53.83 Other fatigue
CPT/HCPCS: 36415; 80053; 80061; 82175; 82306; 82570; 82607; 83655; 83735; 83825; 84100; 84439; 84443; 84481; 85027; 86376; 86618

== ENCOUNTER → 2023-04-30 | Outpatient (CLI) | payer MEDICARE ==
--- NOTE | 2023-04-30 15:30 | US ---
EXAMINATION TYPE: US pelvic complete DATE OF EXAM: 04/30/2023 COMPARISON: Ultrasound 02/15/2014 CLINICAL INDICATION: Female, 78 years old with history of N81.4 UTEROVAGINAL PROLAPSE, UNSPECIFIED; u terovaginal prolapse. Tubal ligation TECHNIQUE: Transabdominal (TA). Date of LMP: unknown EXAM MEASUREMENTS: Uterus: 5.3 x 2.6 x 3.4 cm Right Ovary: unable to visualize Left Ovary: unable to visualize 1. Uterus: Anteverted. Hypoechoic area body/LAMONT as on prior exam = 1.1 x 0.8 x 1.0cm (versus 8 mm on 02/15/2014) 2. Endometrium: not clearly visualized 3. Right Ovary: Obscured by overlying bowel gas 4. Left Ovary: Obscured by overlying bowel gas 5. Bilateral Adnexa: appears wnl 6. Posterior cul-de-sac: wnl IMPRESSION: 1. A round 1.1 cm hypoechoic lesion along the anterior lower uterine segment. The exact etiology is u nclear. Possible focal fibroid or a cystic lesion such as a large nabothian cyst. Correlate for any h istory of prior to exclude a scar niche. Slightly larger from 8 mm in 2014. Consi zander either surveillance follow-up or female pelvic MRI to further characterize. 2. Neither ovary could be visualized.
== END | disposition home or self-care (01) ==
LOC: RADUSWWP 09:57
PROVIDERS: ATTEND Family Medicine
DX: N81.4 Uterovaginal prolapse, unspecified (principal); N88.8 Other specified noninflammatory disorders of cervix uteri
CPT/HCPCS: 76856

== ENCOUNTER → 2023-09-17 | Outpatient (CLI) | payer MEDICARE ==
--- NOTE | 2023-09-18 23:36 | MM ---
Reason for Exam: Screening (asymptomatic). Last mammogram was performed 3 year(s) and 1 month(s) ago. Patient History: Menarche at age 10. First Full-Term at age 18. Postmenopausal. 1993, Benign Excisional Biopsy on the right side. Daughter had breast cancer at or over age 50. Risk Values: Monica 5 year model risk: 4.1%. NCI Lifetime model risk: 7.3%. Prior Study Comparison: 03/24/2018 Left Diagnostic Mammogram, [facility]. 10/06/2018 Bilateral Diagnostic Mammogram, [facility]. 09/02/2020 Bilateral Screening Mammogram, [facility]. Tissue Density: There are scattered fibroglandular densities. Findings: Analyzed By CAD. Small area of grouped microcalcifications lower outer quadrant left breast remain unchanged. There is no suspicious group of microcalcifications or new suspicious mass in either breast. Overall Assessment: Benign, BI-RAD 2 Management: Screening Mammogram of both breasts in 1 year. . Patient should continue monthly self-breast exams. A clinical breast exam by your physician is recommended on an annual basis. This exam should not preclude additional follow-up of suspicious palpable abnormalities. Note on Monica scores and lifetime risk: 1. A Monica score greater than 3% is considered moderate risk. If this is the case, consider specialist referral to assess eligibility for a risk reducing agent. 2. If overall lifetime risk for the development of breast cancer is 20% or higher, the patient may qualify for future screening with alternating mammogram and breast MRI. Electronically signed and approved by: Dae Gamboa M.D. Radiologist
== END | disposition home or self-care (01) ==
LOC: RADMAMWWP 16:14
PROVIDERS: ATTEND Family Medicine
DX: Z12.31 Encounter for screening mammogram for malignant neoplasm of breast (principal); Z78.0 Asymptomatic menopausal state; Z80.3 Family history of malignant neoplasm of breast
CPT/HCPCS: 77063; 77067

== ENCOUNTER → 2023-09-17 | Outpatient (CLI) | payer MEDICARE ==
[2023-09-18 02:48] LABS: Immunoglobulin E <5.00 IU/mL (0.00-114.00)
[2023-09-18 03:01] LABS: Albumin 4.4 d/dL (3.8-4.9); Protein, Total 6.9 d/dL (6.2-8.2)
[2023-09-18 03:02] LABS: Immunoglobulin M 84.4 mg/dL (40.0-280.0)
[2023-09-18 12:37] LABS: Anti-Endomysial IgA Antibody <1:10 Titer (<1:10)
[2023-09-20 01:42] LABS: Immunoglobulin D <1 mg/L (<179)
[2023-10-10 12:00] LABS: Gamma Globulin 0.83 g/dL (0.70-1.50)
== END | disposition home or self-care (01) ==
LOC: LABWHC1 16:16
PROVIDERS: ATTEND Family Medicine
DX: J45.40 Moderate persistent asthma, uncomplicated (principal); K90.0 Celiac disease; Z87.2 Personal history of diseases of the skin and subcutaneous tissue
CPT/HCPCS: 36415; 82784; 82785; 83516; 84165; 86255

== ENCOUNTER → 2023-12-18 | Outpatient (CLI) | payer MEDICARE ==
--- NOTE | 2023-12-18 20:00 | MR ---
EXAMINATION TYPE: MR angio head wo/neck wo/w con DATE OF EXAM: 12/18/2023 7:43 PM CLINICAL INDICATION:Female, 78 years old with history of H93.A3 PULSATILE TINNITUS, BILATERAL; PHH, B ilateral subjective pulsatile tinnitus of ears. Pulsatile tinnitus, bilateral. COMPARISON: MRI brain same day Technical: MRA brain: 2D and 3-D [id number] Axial with MIP and 3-D reconstruction. Performed on a separate w orkstation. MRA neck: Multiplanar, multi-sequence imaging as well as [id number] and phase was performed extra cranial vasculature of the neck. 3-D reformatted images and maximum intensity projection reformatted images were submitted for evaluation, these are performed on a separate workstation. IV Contrast: 5.5 cc Gadobutrol Findings: Vertebral arteries: The vertebral arteries are patent. Vertebral arteries are: Codominant. Basilar artery: The basilar artery is intact. The basilar artery bifurcation is normal. Internal Carotid arteries: The cervical, petrous, cavernous and supraclinoid segments are normal. TERRIE: Patent with no evidence of aneurysm. ACOM: Present without evidence of aneurysm. MCA: Patent with no evidence of aneurysm. INVOICING MACHINE OPERATOR: Patent with no evidence of aneurysm. PCOM: Hypoplastic bilaterally. RIGHT CAROTID SYSTEM: The common carotid artery is patent. The carotid bifurcations demonstrates no e vidence for hemodynamically significant stenosis. The internal carotid artery is patent. LEFT CAROTID SYSTEM: The common carotid artery is patent. The carotid bifurcations demonstrates no e vidence for hemodynamically significant stenosis. The internal carotid artery is patent. The origins of the great vessels and vertebral arteries appear unremarkable. The right vertebral art marizol is dominant. IMPRESSION: 1. No evidence of intracranial aneurysm or significant stenosis. 2. No evidence of significant stenosis at the carotid bifurcations. The carotid and vertebral arteri es are patent. 3. No evidence aneurysm.
--- NOTE | 2023-12-18 20:00 | MR ---
EXAMINATION TYPE: MR brain wo/w con DATE OF EXAM: 12/18/2023 7:45 PM CLINICAL INDICATION:Female, 78 years old with history of H93.A3 PULSATILE TINNITUS, BILATERAL; PHH, B ilateral subjective pulsatile tinnitus of ears. Pulsatile tinnitus, bilateral. COMPARISON: MRA same day TECHNIQUE: Multi planar, multi sequence imaging was performed through the brain including: T1, T2, In version recovery, susceptibility weighted imaging and gradient echo imaging and Diffusion weighted im aging. The patient was then given intravenous contrast and multi planar, T1 fat-saturation images wer e obtained. IV Contrast: 5.5 cc Gadobutrol FINDINGS: The simeon-white junctions, ventricular system, basal cisterns appear unremarkable. Diffusion-weighted imaging shows no evidence of restricted diffusion to suggest acute/subacute infarct. Intracranial ar terial flow voids are maintained. Midline structures show no abnormality. Scattered foci of high T2 s ignal intensity are seen within the periventricular white matter. The susceptibility weighted images do not reveal any evidence for micro-hemorrhage. After administration of gadolinium, no abnormal enha ncement is seen. The bone marrow signal is within normal limits. Paranasal sinuses and mastoid air cells: No significant paranasal sinus disease. Visualized orbits: Right aphakia, left lens is intact. IMPRESSION: 1. No evidence of intracranial mass, acute/subacute infarct, or abnormal enhancement. 2. Nonspecific white matter changes, likely related to small vessel ischemic disease.
== END | disposition home or self-care (01) ==
LOC: RADMRIMAIN 17:55
PROVIDERS: ATTEND Otolaryngology
DX: H93.A3 Pulsatile tinnitus, bilateral (principal); G93.89 Other specified disorders of brain
CPT/HCPCS: 70544; 70549; 70553; A9585

== ENCOUNTER → 2024-03-05 | Outpatient (CLI) | payer MEDICARE ==
[2024-03-05 17:42] LABS: Partial Thromboplastin Time 19.8 sec (22.0-30.0)
[2024-03-06 04:17] LABS: C Reactive Protein 5.1 mg/dL (0.00-0.80)
[2024-03-06 05:34] LABS: Cardiolipin Ab IgG Interp Negative (Negative); Cardiolipin Ab IgM Interp Negative (Negative); Cardiolipin IgA Antibody <2.0 U/mL; Cardiolipin IgM Antibody <1.5 U/mL
== END | disposition home or self-care (01) ==
LOC: LABWHC1 16:31
PROVIDERS: ATTEND Psychiatry & Neurology Neurology
DX: I67.9 Cerebrovascular disease, unspecified (principal); G45.9 Transient cerebral ischemic attack, unspecified
CPT/HCPCS: 36415; 82607; 82747; 83090; 85610; 85613; 85652; 85730; 86140; 86147

== ENCOUNTER → 2024-04-02 | Outpatient (CLI) | payer MEDICARE ==
[2024-04-03 02:37] LABS: HCT 40.6 % (37.2-46.3); HGB 12.7 g/dL (12.0-15.0); MCH 28.3 pg (27.0-32.0); MCHC 31.3 g/dL (32.0-37.0); MCV 90.4 FL (80.0-97.0); Mean Platelet Volume 11.1 FL (9.5-12.2); NRBC Per 100 WBC 0 X 10*3/uL (0.00-0.01); Platelet Count 304 X 10*3/uL (140-440); RBC 4.49 X 10*6/uL (4.10-5.20); RDW 14.9 % (11.5-14.5); WBC 7.72 X 10*3/uL (4.50-10.00)
[2024-04-03 02:50] LABS: ALT 21 U/L (8-44); AST 31 U/L (13-35); Albumin 4.6 g/dL (3.8-4.9); Albumin/Globulin Ratio 1.77 Ratio (1.60-3.17); Alkaline Phosphatase 105 U/L (41-126); BUN/Creat Ratio 25.75 Ratio (12.00-20.00); Blood Urea Nitrogen 20.6 mg/dL (9.0-27.0); Calcium 9.9 mg/dL (8.7-10.3); Carbon Dioxide 20.8 mmol/L (21.6-31.8); Chloride 105 mmol/L (96-109); Creatine Kinase 229 U/L (26-186); Globulin 2.6 g/dL (1.6-3.3); Glucose 85 mg/dL (70-110); LDL Cholesterol,Calculated 120.7 mg/dL (0.0-131.0); Potassium 4.4 mmol/L (3.5-5.5); Rheumatoid Factor, Qnt <15 IU/mL (0-15); Sodium 140 mmol/L (135-145); Total Bilirubin 1.1 mg/dL (0.3-1.2); Total Protein 7.2 g/dL (6.2-8.2); VLDL Calculation 11.56 mg/dL (5.00-40.00)
[2024-04-03 03:55] LABS: Erythrocyte Sedimentation Rate 41 mm/Hr (0-30)
== END | disposition home or self-care (01) ==
LOC: LABWHC1 16:20
PROVIDERS: ATTEND Family Medicine
DX: H04.129 Dry eye syndrome of unspecified lacrimal gland (principal); M25.50 Pain in unspecified joint; M79.10 Myalgia, unspecified site; M12.9 Arthropathy, unspecified; G40.909 Epilepsy, unspecified, not intractable, without status epilepticus; R73.01 Impaired fasting glucose; R68.2 Dry mouth, unspecified; R53.1 Weakness
CPT/HCPCS: 36415; 80053; 80061; 80177; 82550; 83036; 84443; 85027; 85652; 86038; 86235; 86431

== ENCOUNTER → 2024-06-03 | Outpatient (CLI) | payer MEDICARE ==
--- NOTE | 2024-06-03 10:19 | US ---
EXAMINATION TYPE: US abdomen complete DATE OF EXAM: 06/03/2024 COMPARISON: Renal ultrasound 07/25/2017, 08/09/2016, CT abdomen pelvis 07/26/2016. CLINICAL INDICATION: Female, 79 years old with history of R14.0 bloating; Hx renal cysts. GB removed. TECHNIQUE: Multiple sonographic images of the abdomen are obtained. FINDINGS: EXAM MEASUREMENTS: Liver Length: 12.4 cm CBD: 0.5 cm Spleen: 8.0 cm Right Kidney: 9.3 x 4.0 x 4.1 cm Left Kidney: 9.5 x 5.0 x 4.8 cm Pancreas: Head obscured by overlying bowel gas Liver: wnl Gallbladder: Surgically absent CBD: wnl Spleen: wnl Right Kidney: Inferior lateral cystic lesion = 3.0 x 3.3 x 3.0 cm. Dilated renal pelvis. Possible pelvic cysts. Left Kidney: Inferior mid cystic lesion = 1.6 x 1.3 x 1.4 cm. Possible dilated collection system. Upper IVC: wnl Abd Aorta: No AAA visualized at time of scan. The liver is homogenous. The intrahepatic portion of the IVC and proximal abdominal aorta are within normal limits. Gallbladder is surgically absent. Common bile duct is unremarkable. The visualized p ortions of the pancreas are homogenous. The spleen is unremarkable. Kidneys are symmetric and free of hydronephrosis. Right renal pelvic cysts identified. Bilateral simple anechoic thin-walled renal c ysts. This is mildly increased in size from prior examination 2015. IMPRESSION: 1. No hydronephrosis or nephrolithiasis. 2. Bilateral simple renal cysts redemonstrated. Mildly increased in size from prior exam.
== END | disposition home or self-care (01) ==
LOC: RADUSWWP 09:13
PROVIDERS: ATTEND Student in an Organized Health Care Education/Training Program
DX: N28.1 Cyst of kidney, acquired (principal)
CPT/HCPCS: 76700

== ENCOUNTER → 2024-07-24 | Outpatient (CLI) | payer MEDICARE ==
--- NOTE | 2024-07-30 10:44 | BD ---
EXAMINATION TYPE: Axial Bone Density DATE OF EXAM: 07/24/2024 CLINICAL HISTORY: 79 years old Female. ICD-10 CODE: M85.80 Disorder of bone Height: 57.5 in Weight: 118 lbs EXAM MEASUREMENTS: Bone mineral densitometry was performed using the [employer] System. Bone mineral density as measured about the Lumbar spine is: ----- L1-L4(G/cm2): 0.903 T Score Values are as follows: ----- L1: -2.8 ----- L2: -2.6 ----- L3: -2.2 ----- L4: -1.8 ----- L1-L4: -2.3 Z Score Values are as follows: ----- L1: -0.5 ----- L2: -0.4 ----- L3: 0.0 ----- L4: 0.4 ----- L1-L4: -0.1 Bone mineral density baseline Bone mineral density about the R hip (g/cm2): 0.667 Bone mineral density about the L hip (g/cm2): 0.617 T Score values are as follows: -----R Neck: -3.0 -----L Neck: -3.6 -----R Total: -2.7 -----L Total: -3.1 Z Score values are as follows: -----R Neck: -0.6 -----L Neck: -1.2 -----R Total: -0.5 -----L Total: -0.9 Bone mineral density baseline FRAX%s: The graph provided illustrates a 32.1% chance for a major osteoporotic fx and a 15.7% chance for the hips probability for fx in 10 years time. IMPRESSION: Osteoporosis (T Score less than -2.5). There is increased fracture risk and therapy is usually indicated based on age. Re-Screen 1-2 years. NOTE: T-SCORE=SD OF THE YOUNG ADULT MEAN. [facility], , 07/30/2024 10:41 AM
== END | disposition home or self-care (01) ==
LOC: RADBDWWP 13:22
PROVIDERS: ATTEND Family Medicine
DX: M85.80 Other specified disorders of bone density and structure, unspecified site
CPT/HCPCS: 77080